=== PATIENT | female | born 1965 | race Caucasian/White ===

== ENCOUNTER 2018-07-08 21:44 | Emergency (ER) | payer OTHER ==
[~2018-07-08] VITALS: Ht 157.5 cm; Wt 77.1 kg
[2018-07-09] MEDS ORDERED: PROTONIX40 MG PO (09:27)
[2018-07-09] MEDS ORDERED: INTESTINEX680 M1 PO (09:27)
[2018-07-09] MEDS ORDERED: FLAGYL500MG PO (09:27)
[2018-07-09] MEDS ORDERED: CIPRO500 MG PO (09:27)
== END 2018-07-09 10:35 | disposition home or self-care (01) ==
LOC: ER 21:44
DX: K52.9 Noninfective gastroenteritis and colitis, unspecified (principal); E86.0 Dehydration